=== PATIENT | female | born 1945 | race Caucasian/White ===

== ENCOUNTER 2019-01-26 09:19 | Emergency (ER) | payer OTHER ==
[2019-01-26 09:26] VITALS: BP 162/78; PULSE 99; TEMP 97.6; BMI 33.7
[2019-01-26] MEDS ORDERED: ACETAMINOPHEN 325 MG TABLET (FP) PO ONE (09:47)
[2019-01-26] MEDS ORDERED: ACETAMINOPHEN 325 MG TABLET (FP) ONE (09:52)
--- NOTE | 2019-01-26 09:56 | PDOC ---
History of Present Illness - General Chief Complaint: Injury Stated Complaint: PAIN IN LT SHOULDER AND HEAD FROM FALL Time Seen by Provider: 01/26/19 09:39 History Source: Patient Exam Limitations: No Limitations Past History - Past Medical History Allergies/Adverse Reactions: Allergies Allergy/AdvReac Type Severity Reaction Status Date / Time acetaminophen [From Percocet] Allergy Verified 01/26/19 09:26 oxycodone [From Percocet] Allergy Verified 01/26/19 09:26 sulfamethoxazole Allergy Verified 01/26/19 09:26 [From Bactrim] trimethoprim [From Bactrim] Allergy Verified 01/26/19 09:26 Cancer: Yes (uterine) COPD: No Diabetes: Yes HTN: Yes - Surgical History Appendectomy: Yes Cholecystectomy: Yes - Psycho Social/Smoking Cessation Hx Smoking History: Never smoked *Physical Exam - Vital Signs Last Vital Signs Temp Pulse Resp BP Pulse Ox 97.6 F 99 H 18 162/78 99 01/26/19 09:22 01/26/19 09:22 01/26/19 09:22 01/26/19 09:22 01/26/19 09:22 - Physical Exam General Appearance: No: Apparent Distress HEENT: positive: EOMI, TEJAL, Other (small bump palpable along L temporal region of head, no open wound, no laceration, no ecchymosis, negative napoles's sign, no raccoon eyes) Neck: positive: Supple. negative: Tender lateral, Tender midline Respiratory/Chest: positive: Lungs Clear, Normal Breath Sounds. negative: Respiratory Distress Cardiovascular: positive: Regular Rhythm, Regular Rate, S1, S2. negative: Murmur Extremity: positive: Other (+FROM of L shoulder, slight pain with movement of shoulder, no ecchymosis, no bruising) Neurologic: positive: slagger II-XII NML intact, Fully Oriented, Alert, Normal Mood/ Affect, Motor Strength 5/5, Other (ambulatory) ED Treatment Course - RADIOLOGY Radiology Studies Ordered: Category Date Time Status HEAD CT WITHOUT CONTRAST [CT] Stat CT Scan 01/26/19 09:47 Ordered SHOULDER-LEFT [RAD] Stat Radiology 01/26/19 09:47 Ordered Medical Decision Making - Medical Decision Making 74 y/o F hx of HTN, HLD, DM, hypothyroidism presents s/p slip and fall in tub today. Patient states tub was slippery from soap and slipped landing on L side with +head strike. Is c/o L shoulder pain. Denies LOC. Had prior L shoulder surgery in the past. Denies neck pain, cp, sob, abd pain, numbness/tingling/ weakness of extremities, visual/gait changes. Is on baby ASA daily. Plan: CT head to r/o ICB given age L shoulder xray Tylenol for pain 01/26/19 09:53 L shoulder xray with no acute findings Head CT negative stable for dc 01/26/19 10:47 Discharge - Discharge Information Problems reviewed: Yes Clinical Impression/Diagnosis: Fall Qualifiers: Encounter type: initial encounter Qualified Code(s): W19.XXXA - Unspecified fall, initial encounter Condition: Stable Disposition: HOME - Admission No - Additional Discharge Information Prescription Drug Monitoring Program (I-STOP) results: I-STOP not reviewed - Follow up/Referral - Patient Discharge Instructions Additional Instructions: Thank you for choosing [facility]. It was a pleasure taking care of you. You may take Tylenol 650 mg every 6 hours by mouth as needed for mild to moderate pain. Do not take more than 4000 mg of Tylenol in [address] scan of head was negative Your left shoulder xray showed no fracture Return to the Emergency Department if your symptoms worsen or persist, you have weakness of extremities (arms and/or legs), changes in vision or walking or other concerning symptoms. - Post Discharge Activity
== END 2019-01-26 10:50 | disposition home or self-care (01) ==
LOC: JERFT 09:19
DX: M25.512 Pain in left shoulder (principal); W18.2XXA Fall in (into) shower or empty bathtub, initial encounter; Y93.E1 Activity, personal bathing and showering; Y92.59 Other trade areas as the place of occurrence of the external cause; Y99.8 Other external cause status; I10 Essential (primary) hypertension; E78.5 Hyperlipidemia, unspecified; E11.9 Type 2 diabetes mellitus without complications; E03.9 Hypothyroidism, unspecified; Z88.5 Allergy status to narcotic agent; Z88.6 Allergy status to analgesic agent; Z88.2 Allergy status to sulfonamides
CPT/HCPCS: 70450-TC; 73030-TC-LT-FY; 99281-25